=== PATIENT | female | born 1960 | race Two or more races ===

== ENCOUNTER 2019-03-10 08:31 | Outpatient (CLI) | payer OTHER | END 2019-03-10 08:43 | disposition home or self-care (01) | LOC: NUCLEAR 08:31 | DX: I20.8 Other forms of angina pectoris (principal) | CPT/HCPCS: 78452; 93017; A9500 ==

== ENCOUNTER 2021-01-28 14:25 | Inpatient (IN) | payer OTHER ==
[~2021-01-28] VITALS: Ht 162.6 cm; Wt 117.9 kg
[2021-01-28] MEDS ORDERED: LASIX20 MG PO (14:51)
[2021-01-28] MEDS ORDERED: ACID REDUCER20 M1 PO (14:52)
[2021-01-28] MEDS ORDERED: STIOLTO RESPIMAT4 GM IH (14:52)
[2021-01-29] MEDS ORDERED: VENTOLIN HFA18 GM (07:58)
== END 2021-02-06 12:26 | disposition home or self-care (01) | DRG 354 ==
LOC: ER 14:25 → SURG 23:58
PROVIDERS: ADMIT Surgery; ATTEND Surgery
PROC: BW2110Z Computerized Tomography (CT Scan) of Abdomen and Pelvis using Low Osmolar Contrast, Unenhanced and Enhanced (ICD-10-PCS; 2021-01-28)
PROC: 0WUF0JZ Supplement Abdominal Wall with Synthetic Substitute, Open Approach (ICD-10-PCS; principal; 2021-01-29 12:15)
PROC: 02HV33Z Insertion of Infusion Device into Superior Vena Cava, Percutaneous Approach (ICD-10-PCS; 2021-02-02)
DX: K43.0 Incisional hernia with obstruction, without gangrene (principal); Z68.41 Body mass index [BMI] 40.0-44.9, adult; N39.0 Urinary tract infection, site not specified; E66.01 Morbid (severe) obesity due to excess calories; J44.9 Chronic obstructive pulmonary disease, unspecified; I10 Essential (primary) hypertension; Z98.890 Other specified postprocedural states; Z20.822 Contact with and (suspected) exposure to COVID-19

== ENCOUNTER 2023-10-08 09:56 | Inpatient (IN) | payer OTHER ==
[~2023-10-08] VITALS: Ht 167.6 cm; Wt 90.7 kg
[~2023-10-08 09:56] MED LIST: ACID REDUCER20 M1 PO; LASIX20 MG PO; STIOLTO RESPIMAT4 GM IH; VENTOLIN HFA18 GM
[2023-10-08 11:36] LABS: HEMATOCRIT 42.8 % (36.0-45.00); HEMOGLOBIN 14.6 g/dL (12.0-15.00); MEAN CELL VOLUME 88.2 fL (80.00-100.00); PLATELET COUNT 363 K/uL (150-450); RED BLOOD COUNT 4.85 M/uL (4.00-6.00); RED CELL DISTRIBUTION WIDTH 14.4 % (11.5-14.5)
[2023-10-08 11:57] LABS: INR 1.07; PARTIAL THROMBOPLASTIN TIME 29.8 SECONDS (22.0-34.0); PROTHROMBIN TIME 11.2 SECONDS (9.0-11.5)
[2023-10-08 11:58] LABS: CALCIUM 9.6 mg/dL (8.5-10.1); CREATININE SERUM 1.24 mg/dL (0.55-1.02); GFR 43.69; POTASSIUM 3.76 mEq/L (3.5-5.1)
[2023-10-08 12:06] LABS: URINE EPITHELIAL CELLS 156.1 uL (0.0-38.8); URINE RBC 158.8 uL (0.0-20.8); URINE WBC 1091.5 uL (0.0-23.2)
[2023-10-08 12:11] LABS: URINE BILIRRUBIN NEGATIVE (NEGATIVE); URINE BLOOD MODERATE; URINE GLUCOSE NEGATIVE (NEGATIVE); URINE LEUKOCYTE SMALL; URINE NITRATE POSITIVE
[2023-10-08 12:20] LABS: URINE BACTERIA > 9821.5 uL (0.0-1933)
[2023-10-08 12:24] LABS: URINE PROTEIN 100 (NEGATIVE)
[2023-10-08 12:25] LABS: URINE APPEARANCE CLOUDY; URINE COLOR YELLOW
[2023-10-08 20:58] LABS: INR 1.04; PARTIAL THROMBOPLASTIN TIME 30.4 SECONDS (22.0-34.0); PROTHROMBIN TIME 10.9 SECONDS (9.0-11.5)
[2023-10-10 11:59] LABS: HEMATOCRIT 38.2 % (36.0-45.00); HEMOGLOBIN 12.7 g/dL (12.0-15.00); MEAN CELL VOLUME 88.7 fL (80.00-100.00); MEAN CORPUSCULAR HEMOGLOBIN 29.4 pg (27.00-32.0); MEAN CORPUSCULAR HGB CONC 33.1 g/dl (32.0-36.0); PLATELET COUNT 306 K/uL (150-450); RED BLOOD COUNT 4.31 M/uL (4.00-6.00); RED CELL DISTRIBUTION WIDTH 14.5 % (11.5-14.5)
[2023-10-10 12:23] LABS: CREATININE SERUM 0.81 mg/dL (0.55-1.02); GFR 71.41; POTASSIUM 4.06 mEq/L (3.5-5.1)
[2023-10-12 08:11] LABS: HEMATOCRIT 39.2 % (36.0-45.00); MEAN CELL VOLUME 88.4 fL (80.00-100.00); MEAN CORPUSCULAR HEMOGLOBIN 29.2 pg (27.00-32.0); MEAN CORPUSCULAR HGB CONC 33.1 g/dl (32.0-36.0); RED BLOOD COUNT 4.44 M/uL (4.00-6.00); RED CELL DISTRIBUTION WIDTH 15.1 % (11.5-14.5)
[2023-10-12 08:41] LABS: CALCIUM 8.2 mg/dL (8.5-10.1); CREATININE SERUM 0.72 mg/dL (0.55-1.02); GFR 81.81; POTASSIUM 4.03 mEq/L (3.5-5.1)
[2023-10-12 09:28] LABS: PLATELET COUNT 338 K/uL (150-450)
[2023-10-13 06:54] LABS: ALBUMIN 1.7 gm/dL (3.4-5.0); BILIRUBIN TOTAL 0.31 mg/dL (0.3-1.2); CALCIUM 8.6 mg/dL (8.5-10.1); CREATININE SERUM 0.7 mg/dL (0.55-1.02); GFR 84.51; GLOBULINA 3.2 G/DL (2.4-3.5); POTASSIUM 4.08 mEq/L (3.5-5.1); TOTAL PROTEIN 4.9 gm/dL (6.4-8.2)
[2023-10-13 07:06] LABS: HEMATOCRIT 38.3 % (36.0-45.00); HEMOGLOBIN 12.6 g/dL (12.0-15.00); MEAN CELL VOLUME 88.6 fL (80.00-100.00); MEAN CORPUSCULAR HEMOGLOBIN 29.1 pg (27.00-32.0); MEAN CORPUSCULAR HGB CONC 32.9 g/dl (32.0-36.0); RED BLOOD COUNT 4.32 M/uL (4.00-6.00); RED CELL DISTRIBUTION WIDTH 15.3 % (11.5-14.5)
[2023-10-13 08:39] LABS: PLATELET COUNT 329 K/uL (150-450)
[2023-10-14 07:00] LABS: CALCIUM 8.1 mg/dL (8.5-10.1); CREATININE SERUM 0.45 mg/dL (0.55-1.02); GFR 140.72; POTASSIUM 3.73 mEq/L (3.5-5.1)
[2023-10-14 07:40] LABS: HEMATOCRIT 35.2 % (36.0-45.00); HEMOGLOBIN 11.5 g/dL (12.0-15.00); MEAN CELL VOLUME 90.2 fL (80.00-100.00); MEAN CORPUSCULAR HEMOGLOBIN 29.6 pg (27.00-32.0); MEAN CORPUSCULAR HGB CONC 32.8 g/dl (32.0-36.0); PLATELET COUNT 225 K/uL (150-450); RED CELL DISTRIBUTION WIDTH 15.3 % (11.5-14.5)
[2023-10-15 09:54] LABS: HEMATOCRIT 37.5 % (36.0-45.00); HEMOGLOBIN 12.5 g/dL (12.0-15.00); MEAN CELL VOLUME 89.4 fL (80.00-100.00); MEAN CORPUSCULAR HEMOGLOBIN 29.7 pg (27.00-32.0); MEAN CORPUSCULAR HGB CONC 33.3 g/dl (32.0-36.0); PLATELET COUNT 364 K/uL (150-450); RED BLOOD COUNT 4.19 M/uL (4.00-6.00)
[2023-10-15 10:36] LABS: CALCIUM 8.7 mg/dL (8.5-10.1); CREATININE SERUM 0.64 mg/dL (0.55-1.02); GFR 93.72; POTASSIUM 3.97 mEq/L (3.5-5.1)
[2023-10-16 08:58] LABS: CALCIUM 8.4 mg/dL (8.5-10.1); CREATININE SERUM 0.6 mg/dL (0.55-1.02); GFR 100.97; POTASSIUM 4.03 mEq/L (3.5-5.1)
[2023-10-16 09:38] LABS: HEMOGLOBIN 11.4 g/dL (12.0-15.00); MEAN CELL VOLUME 88.5 fL (80.00-100.00); MEAN CORPUSCULAR HEMOGLOBIN 28.8 pg (27.00-32.0); MEAN CORPUSCULAR HGB CONC 32.5 g/dl (32.0-36.0); PLATELET COUNT 351 K/uL (150-450); RED BLOOD COUNT 3.95 M/uL (4.00-6.00); RED CELL DISTRIBUTION WIDTH 14.9 % (11.5-14.5)
[2023-10-17 07:51] LABS: CALCIUM 8.3 mg/dL (8.5-10.1); CREATININE SERUM 0.61 mg/dL (0.55-1.02); GFR 99.06; POTASSIUM 3.67 mEq/L (3.5-5.1)
[2023-10-17 08:14] LABS: HEMATOCRIT 35.1 % (36.0-45.00); HEMOGLOBIN 11.5 g/dL (12.0-15.00); MEAN CELL VOLUME 88.8 fL (80.00-100.00); MEAN CORPUSCULAR HGB CONC 32.7 g/dl (32.0-36.0); PLATELET COUNT 350 K/uL (150-450); RED BLOOD COUNT 3.95 M/uL (4.00-6.00); RED CELL DISTRIBUTION WIDTH 14.7 % (11.5-14.5)
[2023-10-18 07:49] LABS: HEMATOCRIT 33.8 % (36.0-45.00); HEMOGLOBIN 11.4 g/dL (12.0-15.00); MEAN CELL VOLUME 89.8 fL (80.00-100.00); MEAN CORPUSCULAR HEMOGLOBIN 30.2 pg (27.00-32.0); MEAN CORPUSCULAR HGB CONC 33.6 g/dl (32.0-36.0); PLATELET COUNT 391 K/uL (150-450); RED BLOOD COUNT 3.76 M/uL (4.00-6.00); RED CELL DISTRIBUTION WIDTH 14.7 % (11.5-14.5)
[2023-10-18 07:50] LABS: CALCIUM 8.3 mg/dL (8.5-10.1); CREATININE SERUM 0.57 mg/dL (0.55-1.02); GFR 107.13; POTASSIUM 4.16 mEq/L (3.5-5.1)
[2023-10-19 07:10] LABS: HEMATOCRIT 30.7 % (36.0-45.00); HEMOGLOBIN 10.4 g/dL (12.0-15.00); MEAN CELL VOLUME 89.9 fL (80.00-100.00); MEAN CORPUSCULAR HEMOGLOBIN 30.4 pg (27.00-32.0); MEAN CORPUSCULAR HGB CONC 33.8 g/dl (32.0-36.0); PLATELET COUNT 399 K/uL (150-450); RED BLOOD COUNT 3.41 M/uL (4.00-6.00); RED CELL DISTRIBUTION WIDTH 14.4 % (11.5-14.5)
[2023-10-19 07:54] LABS: CREATININE SERUM 0.52 mg/dL (0.55-1.02); GFR 119.1; POTASSIUM 4.74 mEq/L (3.5-5.1)
[2023-10-20 06:50] LABS: HEMATOCRIT 30.2 % (36.0-45.00); HEMOGLOBIN 10.3 g/dL (12.0-15.00); MEAN CORPUSCULAR HEMOGLOBIN 30.3 pg (27.00-32.0); PLATELET COUNT 444 K/uL (150-450); RED BLOOD COUNT 3.39 M/uL (4.00-6.00); RED CELL DISTRIBUTION WIDTH 14.6 % (11.5-14.5)
[2023-10-20 07:12] LABS: CALCIUM 7.8 mg/dL (8.5-10.1); CREATININE SERUM 0.52 mg/dL (0.55-1.02); GFR 119.1; POTASSIUM 4.52 mEq/L (3.5-5.1)
[2023-10-21 06:49] LABS: CALCIUM 8.3 mg/dL (8.5-10.1); CREATININE SERUM 0.46 mg/dL (0.55-1.02); GFR 137.2; POTASSIUM 4.71 mEq/L (3.5-5.1)
[2023-10-21 07:08] LABS: HEMATOCRIT 30.5 % (36.0-45.00); HEMOGLOBIN 10.3 g/dL (12.0-15.00); MEAN CELL VOLUME 89.1 fL (80.00-100.00); MEAN CORPUSCULAR HGB CONC 33.7 g/dl (32.0-36.0); PLATELET COUNT 499 K/uL (150-450); RED BLOOD COUNT 3.43 M/uL (4.00-6.00); RED CELL DISTRIBUTION WIDTH 14.4 % (11.5-14.5)
== END 2023-10-21 12:24 | disposition home or self-care (01) | DRG 329 ==
LOC: ER 09:57 → SURG 17:36 → ICU 10-12 18:36 → SURG 10-13 17:22
PROVIDERS: Emergency Medicine; General Practice; Surgery; ADMIT Internal Medicine; ATTEND Internal Medicine
PROC: 0D9670Z Drainage of Stomach with Drainage Device, Via Natural or Artificial Opening (ICD-10-PCS; 2023-10-08)
PROC: BW21YZZ Computerized Tomography (CT Scan) of Abdomen and Pelvis using Other Contrast (ICD-10-PCS; 2023-10-08)
PROC: BW21YZZ Computerized Tomography (CT Scan) of Abdomen and Pelvis using Other Contrast (ICD-10-PCS; 2023-10-10)
PROC: 0DQ80ZZ Repair Small Intestine, Open Approach (ICD-10-PCS; principal; 2023-10-12)
PROC: 0DN80ZZ Release Small Intestine, Open Approach (ICD-10-PCS; 2023-10-12)
PROC: 0DJW0ZZ Inspection of Peritoneum, Open Approach (ICD-10-PCS; 2023-10-12)
PROC: 0W9G0ZZ Drainage of Peritoneal Cavity, Open Approach (ICD-10-PCS; 2023-10-12)
PROC: 0JB80ZZ Excision of Abdomen Subcutaneous Tissue and Fascia, Open Approach (ICD-10-PCS; 2023-10-12)
PROC: 0WQF0ZZ Repair Abdominal Wall, Open Approach (ICD-10-PCS; 2023-10-12)
PROC: 0JX80ZZ Transfer Abdomen Subcutaneous Tissue and Fascia, Open Approach (ICD-10-PCS; 2023-10-12)
PROC: 3E0F7GC Introduction of Other Therapeutic Substance into Respiratory Tract, Via Natural or Artificial Opening (ICD-10-PCS; 2023-10-13)
PROC: 0JD83ZZ Extraction of Abdomen Subcutaneous Tissue and Fascia, Percutaneous Approach (ICD-10-PCS; 2023-10-14)
PROC: 02HV33Z Insertion of Infusion Device into Superior Vena Cava, Percutaneous Approach (ICD-10-PCS; 2023-10-19)
DX: K43.1 Incisional hernia with gangrene (principal); K63.1 Perforation of intestine (nontraumatic); K65.1 Peritoneal abscess; L02.211 Cutaneous abscess of abdominal wall; K56.50 Intestinal adhesions [bands], unspecified as to partial versus complete obstruction; B49 Unspecified mycosis; T81.31XA Disruption of external operation (surgical) wound, not elsewhere classified, initial encounter; L03.311 Cellulitis of abdominal wall; H30.93 Unspecified chorioretinal inflammation, bilateral; H43.89 Other disorders of vitreous body; K52.9 Noninfective gastroenteritis and colitis, unspecified; E86.0 Dehydration; I10 Essential (primary) hypertension; J44.9 Chronic obstructive pulmonary disease, unspecified; Z98.84 Bariatric surgery status

== ENCOUNTER 2024-07-12 15:52 | Inpatient (IN) | payer OTHER ==
[~2024-07-12] VITALS: Ht 132.1 cm; Wt 102.1 kg
[2024-07-12] MEDS ORDERED: RINGERS SOLUTION,LACTATED 1,000 ML IV STA (17:45)
[2024-07-12] MEDS ORDERED: HYOSCYAMINE SULFATE 0.125 MG TAB.SUBL SL STA (17:46)
[2024-07-12] MEDS ORDERED: MEPERIDINE HCL/PF 25 MG/ML VIAL IM STA (17:47)
[2024-07-12] MEDS ORDERED: ONDANSETRON HCL 2 MG/ML VIAL IV STA (17:47)
[2024-07-12] MEDS ORDERED: PROMETHAZINE HCL 25 MG/ML AMPUL IM STA (17:47)
[2024-07-12] MEDS ORDERED: HYOSCYAMINE SULFATE 0.125 MG TAB.SUBL ONE ×2 (17:54→17:59)
[2024-07-12] MEDS ORDERED: ONDANSETRON HCL 2 MG/ML VIAL ONE (17:54)
[2024-07-12] MEDS ORDERED: BARIUM SULFATE 450 ML ORAL.SUSP PO ONE (17:59)
[2024-07-12] MEDS ORDERED: PROMETHAZINE HCL 25 MG/ML AMPUL ONE (17:59)
[2024-07-12 18:22] LABS: HEMATOCRIT 39.3 % (36.0-45.00); HEMOGLOBIN 13.2 g/dL (12.0-15.00); MEAN CELL VOLUME 89.8 fL (80.00-100.00); MEAN CORPUSCULAR HEMOGLOBIN 30.1 pg (27.00-32.0); MEAN CORPUSCULAR HGB CONC 33.5 g/dl (32.0-36.0); PLATELET COUNT 364 K/uL (150-450); RED BLOOD COUNT 4.37 M/uL (4.00-6.00); RED CELL DISTRIBUTION WIDTH 14.5 % (11.5-14.5)
[2024-07-12 18:25] LABS: PH,URINE 5.5 (5.0-8.0); URINE APPEARANCE Clear; URINE BILIRRUBIN Negative (NEGATIVE); URINE BLOOD NHT; URINE COLOR Dark Yellow; URINE GLUCOSE Negative (NEGATIVE); URINE KETONE Trace (NEGATIVE); URINE LEUKOCYTE Moderate; URINE NITRATE Negative; URINE PROTEIN Trace (NEGATIVE)
[2024-07-12 18:29] LABS: URINE BACTERIA 210.3 uL (0.0-1933); URINE WBC 66.4 uL (0.0-23.2)
[2024-07-12 18:36] LABS: INR 1.02; PARTIAL THROMBOPLASTIN TIME 31.9 SECONDS (22.0-34.0); PROTHROMBIN TIME 11.1 SECONDS (9.0-11.5)
[2024-07-12 18:44] LABS: BILIRUBIN TOTAL 0.65 mg/dL (0.3-1.2); CALCIUM 9.5 mg/dL (8.5-10.1); CREATININE SERUM 0.8 mg/dL (0.55-1.02); GFR 72.21; GLOBULINA 4.4 G/DL (2.4-3.5); POTASSIUM 3.91 mEq/L (3.5-5.1); TOTAL PROTEIN 7.4 gm/dL (6.4-8.2)
[2024-07-12] MEDS ORDERED: METOCLOPRAMIDE HCL 5 MG/ML VIAL IM STA (18:49)
[2024-07-12] MEDS ORDERED: METOCLOPRAMIDE HCL 5 MG/ML VIAL ONE (18:55)
[2024-07-12] MEDS ORDERED: PIPERACILLIN/TAZOBACTAM SODIUM 3.375 GM in DEXTROSE 5 % IN WATER 100 ML IV SCH (21:57)
[2024-07-12] MEDS ORDERED: 0.9 % SODIUM CHLORIDE 1,000 ML IV SCH (22:00)
[2024-07-12] MEDS ORDERED: MEPERIDINE HCL/PF 25 MG/ML VIAL IM PRN (22:00)
[2024-07-12] MEDS ORDERED: ONDANSETRON HCL 4 MG in 0.9 % SODIUM CHLORIDE 50 ML IV PRN (22:00)
[2024-07-12] MEDS ORDERED: ACETAMINOPHEN 500 MG GEL..CAP PO ONE (23:51)
[2024-07-13] MEDS ORDERED: PIPERACILLIN/TAZOBACTAM SODIUM 3.375 GM VIAL IV ONE (00:58)
[2024-07-13] MEDS ORDERED: LIDOCAINE HCL 2% JELLY 6 ML SYRINGE MM ONE (01:03)
[2024-07-13] MEDS ORDERED: LIDOCAINE HCL VISCOUS 20MG/ML BLIST 15ML MM ONE (01:04)
[2024-07-13 01:06] VITALS: BP 145/85
[2024-07-13 02:00] LABS: INR 1.01; PARTIAL THROMBOPLASTIN TIME 32.7 SECONDS (22.0-34.0)
[2024-07-13 02:30] VITALS: BP 131/75; O2SAT 95
[2024-07-13 08:00] VITALS: BP 134/71; O2SAT 97
[2024-07-13] MEDS ORDERED: FAMOTIDINE/PF 20 MG in 0.9 % SODIUM CHLORIDE 8 ML IV PUSH SCH (09:00)
[2024-07-13 15:30] VITALS: BP 128/69; O2SAT 96
[2024-07-13] MEDS ORDERED: KETOROLAC TROMETHAMINE 30 MG VIAL IU STA (20:39)
[2024-07-13] MEDS ORDERED: KETOROLAC TROMETHAMINE 30 MG VIAL IU PRN (20:45)
[2024-07-13] MEDS ORDERED: METOCLOPRAMIDE HCL 5 MG/ML VIAL IV SCH (21:00)
[2024-07-14] VITALS: BP 113/53; O2SAT 90
[2024-07-14 08:00] VITALS: BP 134/66; O2SAT 95
[2024-07-14] MEDS ORDERED: KETOROLAC TROMETHAMINE 30 MG VIAL IV PRN (09:00)
[2024-07-14 15:46] VITALS: BP 144/60; O2SAT 95
[2024-07-15 00:38] VITALS: BP 107/51; O2SAT 97
[2024-07-15 08:00] VITALS: BP 138/78; O2SAT 98
== END 2024-07-15 10:48 | disposition home or self-care (01) | DRG 389 ==
LOC: ER 15:53 → SEC-K 21:59 → SURG 21:59
PROVIDERS: General Practice; ADMIT Internal Medicine; ATTEND Internal Medicine
PROC: BW21YZZ Computerized Tomography (CT Scan) of Abdomen and Pelvis using Other Contrast (ICD-10-PCS; principal; 2024-07-12)
DX: K56.609 Unspecified intestinal obstruction, unspecified as to partial versus complete obstruction (principal); K43.6 Other and unspecified ventral hernia with obstruction, without gangrene

== ENCOUNTER 2025-07-07 18:00 | Inpatient (IN) | payer OTHER ==
[~2025-07-07] VITALS: Ht 162.6 cm; Wt 88.5 kg
[2025-07-07] MEDS ORDERED: ZEPBOUND15 MG/0.5 SQ (18:12)
[2025-07-07] MEDS ORDERED: TRAMADOL HCL 50 MG TABLET PO STA (19:04)
[2025-07-07 20:25] LABS: BASO % 0.3 % (0.1-1.2); EOS # 0.03 (0.04-0.54); EOS % 0.2 % (0.7-7.0); LYMPH # 0.37 (1.18-3.74); LYMPH % 2.5 % (19.3-53.1); MEAN PLATELET VOLUME 9.40 fl (9.4-12.4); MONO # 0.27 (0.24-0.82); MONO % 1.8 % (4.7-12.5); NEUT # 13.83 (1.56-6.13); NEUT % 94.7 % (34.0-71.1); RED CELL DISTRIBUTION WIDTH 13.1 % (11.6-14.4)
[2025-07-07 21:08] LABS: URINE BILIRRUBIN SMALL (NEGATIVE); URINE BLOOD MODERATE; URINE KETONE TRACE (NEGATIVE); URINE LEUKOCYTE MODERATE; URINE NITRATE POSITIVE
[2025-07-07 21:15] LABS: ALT/SGPT 180.0 U/L (12-78); AST/SGOT 138.0 U/L (15-37); BILIRUBIN TOTAL 0.79 mg/dL (0.3-1.2); BUN CREA RATIO 22.0 (7.0-25.0); CREATININE SERUM 1.45 mg/dL (0.55-1.02); GFR 36.24; GLOBULINA 3.0 G/DL (2.4-3.5); GLUCOSE FASTING 140.0 mg/dL (65-100); OSMOLALITY SERUM 290.0 MOSM/KG (275-295)
[2025-07-07 21:30] LABS: URINE APPEARANCE CLOUDY; URINE COLOR ORANGE; URINE GLUCOSE 100 MG/DL (NEGATIVE); URINE PROTEIN >=300 (NEGATIVE); URINE UROBILINOGEN 4.0 E.U./dl
[2025-07-07] MEDS ORDERED: 0.9 % SODIUM CHLORIDE 1,000 ML IV STA (21:31)
[2025-07-07 21:32] LABS: URINE WBC LOADED /hpf
[2025-07-07 21:33] LABS: URINE BACTERIA MANY; URINE CRYSTALS NEGATIVE /HPF; URINE MUCUS SCANT
[2025-07-07] MEDS ORDERED: CEFTRIAXONE SODIUM 2,000 MG VIAL IV STA (21:41)
[2025-07-07] MEDS ORDERED: CEFTRIAXONE SODIUM 2,000 MG VIAL ONE (22:10)
[2025-07-07] MEDS ORDERED: TAMSULOSIN HCL 0.4 MG CAP PO STA (22:30)
[2025-07-07] MEDS ORDERED: TAMSULOSIN HCL 0.4 MG CAP PO ONE (22:34)
[2025-07-08] MEDS ORDERED: FAMOTIDINE/PF 20 MG in 0.9 % SODIUM CHLORIDE 8 ML IV PUSH SCH (00:43)
[2025-07-08] MEDS ORDERED: ACETAMINOPHEN 500 MG GEL..CAP PO PRN (00:45)
[2025-07-08] MEDS ORDERED: 0.9 % SODIUM CHLORIDE 1,000 ML IV SCH (00:45)
[2025-07-08] MEDS ORDERED: DEXTROSE 50 % IN WATER 0.5 G/ML DISP.SYRIN IV PRN (00:45)
[2025-07-08] MEDS ORDERED: INSULIN LISPRO 1,000 UNIT/10 ML UNITS SUBCUTANEO PRN (00:45)
[2025-07-08] MEDS ORDERED: MORPHINE SULFATE 4 MG/ML CARTRIDGE IV PRN (01:00)
[2025-07-08] MEDS ORDERED: FAMOTIDINE/PF 20 MG/2 ML VIAL ONE (02:38)
[2025-07-08 04:00] VITALS: BP 87/60; O2SAT 97
[2025-07-08 04:05] LABS: INR 1.25
[2025-07-08 04:09] LABS: BILIRUBIN TOTAL 0.42 mg/dL (0.3-1.2); BILIRUBIN,CONJUGATED 0.16 mg/dL (0.0-0.2)
[2025-07-08] MEDS ORDERED: MEROPENEM 500 MG/VIAL VIAL IV STA (07:20)
[2025-07-08 08:56] VITALS: BP 120/99
[2025-07-08] MEDS ORDERED: CEFTRIAXONE SODIUM 2,000 MG in 0.9 % SODIUM CHLORIDE 100 ML IV SCH (09:00)
[2025-07-08] MEDS ORDERED: TAMSULOSIN HCL 0.4 MG CAP PO SCH (09:00)
[2025-07-08] MEDS ORDERED: IOVERSOL 320 MG/ML - 50 ML VIAL IV ONE (10:15)
[2025-07-08 18:03] VITALS: BP 93/63; O2SAT 96
[2025-07-09 02:52] VITALS: BP 102/64; O2SAT 89
[2025-07-09 06:14] LABS: BASO % 0.5 % (0.1-1.2); EOS # 0.06 (0.04-0.54); EOS % 0.5 % (0.7-7.0); LYMPH # 0.60 (1.18-3.74); LYMPH % 4.5 % (19.3-53.1); MEAN PLATELET VOLUME 10.00 fl (9.4-12.4); MONO # 0.45 (0.24-0.82); MONO % 3.4 % (4.7-12.5); NEUT # 11.47 (1.56-6.13); NEUT % 86.5 % (34.0-71.1); RED CELL DISTRIBUTION WIDTH 13.6 % (11.6-14.4)
[2025-07-09 06:56] LABS: ALT/SGPT 95.0 U/L (12-78); AST/SGOT 32.0 U/L (15-37); BILIRUBIN TOTAL 0.29 mg/dL (0.3-1.2); BUN CREA RATIO 24.0 (7.0-25.0); CREATININE SERUM 1.35 mg/dL (0.55-1.02); GFR 39.36; GLOBULINA 2.7 G/DL (2.4-3.5); GLUCOSE FASTING 106.0 mg/dL (65-100); OSMOLALITY SERUM 291.0 MOSM/KG (275-295)
[2025-07-09 08:27] VITALS: BP 94/63; O2SAT 92
[2025-07-09 08:30] LABS: BAND MAN 8.0 %; LYMPHOCYTE MAN 4.0 %; MONOCYTE MAN 1.0 %; NEUTROPHILS MAN 87.0 %
[2025-07-09 17:11] VITALS: BP 121/78; O2SAT 93
[2025-07-10 01:36] VITALS: BP 104/62; O2SAT 96
[2025-07-10 08:43] VITALS: BP 105/71; O2SAT 93
== END 2025-07-10 11:15 | disposition home or self-care (01) | DRG 689 ==
LOC: ER 18:00 → MEDJ 07-08 02:20
PROVIDERS: General Practice; Urology; ADMIT Internal Medicine; ATTEND Internal Medicine
PROC: BW21ZZZ Computerized Tomography (CT Scan) of Abdomen and Pelvis (ICD-10-PCS; 2025-07-07)
PROC: 0T7D4DZ Dilation of Urethra with Intraluminal Device, Percutaneous Endoscopic Approach (ICD-10-PCS; 2025-07-08)
PROC: 0TJB8ZZ Inspection of Bladder, Via Natural or Artificial Opening Endoscopic (ICD-10-PCS; principal; 2025-07-08 09:00)
DX: N12 Tubulo-interstitial nephritis, not specified as acute or chronic (principal); A41.9 Sepsis, unspecified organism; R65.10 Systemic inflammatory response syndrome (SIRS) of non-infectious origin without acute organ dysfunction; N13.30 Unspecified hydronephrosis; N17.9 Acute kidney failure, unspecified; N39.0 Urinary tract infection, site not specified